=== PATIENT | male | born 1990 | race Caucasian/White ===

== ENCOUNTER 2020-08-06 03:13 | Emergency (ER) | payer OTHER ==
[2020-08-06] MEDS ORDERED: BACITRACIN15 GM TOP (04:52)
[2020-08-06] MEDS ORDERED: NORCO 5-325 TA1 EACH PO (04:52)
== END 2020-08-06 05:07 | disposition home or self-care (01) ==
LOC: FER 03:13
DX: T20.22XA Burn of second degree of lip(s), initial encounter (principal); T20.17XA Burn of first degree of neck, initial encounter; T31.0 Burns involving less than 10% of body surface; F17.200 Nicotine dependence, unspecified, uncomplicated; Z23 Encounter for immunization; Z88.0 Allergy status to penicillin; Z79.899 Other long term (current) drug therapy; X08.8XXA Exposure to other specified smoke, fire and flames, initial encounter; Y92.89 Other specified places as the place of occurrence of the external cause; Y99.0 Civilian activity done for income or pay
CPT/HCPCS: 90471; 90715; 99283